=== PATIENT | male | born 1955 | race African-American/Black ===

== ENCOUNTER 2018-04-29 13:10 | Emergency (ER) | payer OTHER ==
[~2018-04-29] VITALS: Ht 167.6 cm; Wt 102.1 kg
[~2018-04-29 13:10] MED LIST: AMLODIPINE BESY10 MG PO; CARAFATE 1 GM TA1 G1 PO; COZAAR 50 MG TA50 M2 PO; HYDROCHLOROTHIA25 M2 PO; HYDROCODONE-APA1 TA1 PO; KLOR-CON 1010 MEQ PO; LOPRESSOR50 MG PO; METFORMIN HCL500 MG PO; PRAVACHOL40 M1 PO; PRILOSEC 20 MG20 MG PO; REGLAN 5 MG TAB5 MG PO; TRAMADOL 50 MG50 MG PO
[2018-04-29 13:51] LABS: ABSOLUTE BASOPHILS 0.1 thou/uL (0.0-0.2); ABSOLUTE EOSINOPHILS 0.4 thou/uL (0.0-0.7); ABSOLUTE LYMPHOCYTES 1.8 thou/uL (0.8-5.3); ABSOLUTE MONOCYTES 0.4 thou/uL (0.0-1.2); BASOPHILS 1.3 %; EOSINOPHILS 6.3 %; HEMOGLOBIN 12.1 gm/dL (14.0-18.0); LYMPHOCYTES 27.1 %; MCH 25.4 pg (26.0-34.0); MCHC 31.9 g/dL (28.0-37.0); MCV 79.6 fL (80.0-100.0); MONOCYTES 6.5 %; MPV 8.9 fl. (7.2-11.1); NUCLEATED RBCS 0 /100WBC; PLATELET COUNT* 263 thou/uL (150-400); POLYS 58.8 %; RBC 4.77 mil/uL (4.50-6.00); RDW-CV 15.1 % (10.5-14.5); WBC 6.8 thou/uL (4.0-11.0)
[2018-04-29 13:57] LABS: ANION GAP 8 mmol/L (7-16); BUN 17 mg/dL (7-18); CALCIUM 9.1 mg/dL (8.5-10.1); CHLORIDE 102 mmol/L (98-107); CO2 27 mmol/L (21-32); CREATININE 1.3 mg/dL (0.6-1.3); GLUCOSE 137 mg/dL (70-99); POTASSIUM 3.4 mmol/L (3.5-5.1); SODIUM 137 mmol/L (136-145)
[2018-04-29 14:04] LABS: ALBUMIN 3.5 g/dL (3.4-5.0); ALKALINE PHOSPHATASE 93 U/L (46-116); SGOT 22 U/L (15-37); SGPT 27 U/L (30-65); TOTAL BILIRUBIN 0.8 mg/dL (<0.1-1.0); TOTAL PROTEIN 7.3 g/dL (6.4-8.2); TROPONIN-I LEVEL <0.06 ng/mL (<0.06)
[2018-04-29 14:52] VITALS: BP 121/73
--- NOTE | 2018-04-30 11:52 | EKG ---
[place] [address] ELECTROCARDIOGRAM REPORT Name: DANNI [facility]INDER 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 : 1955 Requested By: Carrie Arnold Order Number: [id number] MD: Ryland Brewer Measurements Intervals [place] Rate: 41 P: -22 [place]: 256 QRS: -13 QRSD: 108 T: -22 QT: 448 QTc: 370 Interpretive Statements Sinus bradycardia Prolonged [place] interval Abnormal T, consider ischemia, anterior leads Compared to ECG 06/06/2016 04:19:42 No significant changes Electronically Signed On 04-30-2018 11:52:31 CDT by Ryland Brewer [email or web address] <ELECTRONICALLY SIGNED> By: Ryland Brewer MD, [facility] 04/30/18 1152 1403 140 Ryland Brewer MD, [facility] /EPI
== END 2018-04-29 14:53 | disposition home or self-care (01) ==
LOC: M.ERS 13:10
PROVIDERS: Nurse Practitioner Family
DX: S22.20XA Unspecified fracture of sternum, initial encounter for closed fracture (principal); I10 Essential (primary) hypertension; E11.9 Type 2 diabetes mellitus without complications; V89.2XXA Person injured in unspecified motor-vehicle accident, traffic, initial encounter; Y93.I9 Activity, other involving external motion; Y92.89 Other specified places as the place of occurrence of the external cause; Y99.8 Other external cause status

== ENCOUNTER 2019-11-20 17:25 | Inpatient (IN) | payer BC, MEDICARE ==
[~2019-11-20] VITALS: Ht 170.2 cm; Wt 119.5 kg
[~2019-11-20 17:25] MED LIST changes: -PRILOSEC 20 MG20 MG PO; +PRILOSEC OTC20 MG PO
[2019-11-20 17:45] VITALS: BP 109/58
[2019-11-20 17:52] LABS: ABSOLUTE BASOPHILS 0.1 thou/uL (0.0-0.2); ABSOLUTE EOSINOPHILS 0.4 thou/uL (0.0-0.7); ABSOLUTE MONOCYTES 0.7 thou/uL (0.0-1.2); BASOPHILS 1.3 %; EOSINOPHILS 5.3 %; HEMATOCRIT 36.7 % (42.0-52.0); HEMOGLOBIN 12.1 gm/dL (14.0-18.0); LYMPHOCYTES 24.6 %; MONOCYTES 8.4 %; MPV 9.1 fl. (7.2-11.1); NUCLEATED RBCS 0 /100WBC; PLATELET COUNT* 242 thou/uL (150-400); POLYS 60.4 %; RBC 4.65 mil/uL (4.50-6.00); RDW-CV 15.6 % (10.5-14.5); WBC 8.3 thou/uL (4.0-11.0)
[2019-11-20 18:01] LABS: APTT 24.1 Seconds (25.0-31.3); PROTIME 10.7 Seconds (9.20-11.50)
[2019-11-20 18:06] LABS: ANION GAP 9 mmol/L (7-16); BUN 15 mg/dL (7-18); CALCIUM 8.9 mg/dL (8.5-10.1); CHLORIDE 102 mmol/L (98-107); CO2 27 mmol/L (21-32); CREATININE 1.6 mg/dL (0.6-1.3); GLUCOSE 136 mg/dL (70-99); POTASSIUM 4.4 mmol/L (3.5-5.1); SODIUM 138 mmol/L (136-145)
[2019-11-20 18:11] LABS: ALBUMIN 3.7 g/dL (3.4-5.0); ALKALINE PHOSPHATASE 97 U/L (46-116); CHOLESTEROL 126 mg/dL (<200); HDL CHOLESTEROL 44 mg/dL (>40); LDL CHOLESTEROL 61 mg/dL (<100); MAGNESIUM 1.6 mg/dL (1.8-2.4); SGOT 18 U/L (15-37); SGPT 25 U/L (30-65); TC:HDL 2.9 Ratio (Not establshd); TOTAL BILIRUBIN 0.9 mg/dL (<0.1-1.0); TOTAL PROTEIN 7.1 g/dL (6.4-8.2); TRIGLYCERIDE 109 mg/dL (<150); VLDL 22 mg/dL (<40)
[2019-11-20 18:12] LABS: SERUM ASSESSMENT Clear
[2019-11-20 20:25] VITALS: BP 111/74
[2019-11-20 20:30] VITALS: BP 115/70
[2019-11-20 21:07] LABS: URINE BILIRUBIN NEGATIVE (Negative); URINE BLOOD NEGATIVE (Negative); URINE CLARITY CLEAR; URINE COLOR YELLOW; URINE GLUCOSE-RANDOM NEGATIVE (Negative); URINE KETONES NEGATIVE (Negative); URINE LEUKOCYTES-REFLEX NEGATIVE (Negative); URINE NITRITE-REFLEX NEGATIVE (Negative); URINE PROTEIN NEGATIVE (Negative); URINE UROBILINOGEN 0.2 E.U./dl (0.2-1.0)
[2019-11-21 00:33] VITALS: BP 119/77
[2019-11-21 03:15] VITALS: BP 125/77
--- NOTE | 2019-11-21 05:10 | NUR ---
RECEIVED PT FROM ED AT APPROX 2030 PER CART ACCOMPANIED BY ALEXANDRA ZARAGOZA. PT IS AWAKE AND ORIENTED X4. MARINE OPERATIONS COORDINATOR IN PLACE TRACING SR w/ 1ST DEGREE AVB. RHYTHM CHANGE NOTED AT APPROX 0315- SB w/ 2nd DEGREE AVB TYPE II- SEE TRACING IN CHART. OTHER VITAL SIGNS REMAINED STABLE. PT DENIES LIGHTHEADEDNESS NOR CHEST PAIN, DR SPANN INFORMED, NO NEW ORDERS RECEIVED. WILL CONTINUE TO MONITOR CLOSELY.
[2019-11-21 05:39] LABS: CALCIUM 7.8 mg/dL (8.5-10.1); CREATININE 1.2 mg/dL (0.6-1.3); MAGNESIUM 1.5 mg/dL (1.8-2.4); POTASSIUM 3.4 mmol/L (3.5-5.1)
[2019-11-21 07:58] VITALS: BP 106/68
[2019-11-21 10:49] VITALS: BP 106/68
--- NOTE | 2019-11-21 12:10 | NUR ---
MET WITH PT TO DISCUSS HOME SITUATION/DC PLANNING. 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 HE USES NO EQUIPMENT. VOICED FRUSTRATION WITH STAYING IN HOSPITAL. DISCUSSED POC AND ENCOURAGED COMPLIANCE. PT STATES HE HAD TO CHANGE DRS 3 TIMES RECENTLY D/T [facility] OF 1 AND INSURANCE ISSUES ON THE OTHER. HE HOPES TO GO HOME SOON. DENIES NEEDS. WILL FOLLOW
[2019-11-21 12:28] VITALS: BP 130/78
--- NOTE | 2019-11-21 14:37 | 2DMMODE ---
[place] [address] 2 D/M-MODE ECHOCARDIOGRAM Name: DANNI LINDER Room: [place] [address] ADM IN [facility]#: [id number] Admission: 11/21/19 Attend Phys: Danni Prajapati, Discharge: Date of : 51 Date of Service: 11/21/19 1436 Report #: [id number] THIS REPORT FOR: //name// APPROVED REPORT Study performed: 11/21/2019 09:54:11 EXAM: Comprehensive 2D, Doppler, and color-flow Echocardiogram Patient Location: In-Patient Room #: [facility] Status: routine BSA: 2.23 HR: 54 bpm BP: 106/68 mmHg Rhythm: NSR Other Information Study Quality: Good Indications Arrhythmia 2D Dimensions IVSd: 12.50 (7-11mm) LVOT Diam: 22.62 (18-24mm) LVDd: 45.86 mm PWd: 9.77 (7-11mm) Ascending Ao: 36.56 (22-36mm) LVDs: 32.75 (25-40mm) Aortic Root: 28.33 mm Volumes Left Atrial Volume (Systole) LA ESV Index: 34.20 mL/m2 Aortic Valve AoV Peak Luigi.: 1.26 m/s AO Peak Gr.: 6.34 mmHg LVOT Max P.86 mmHg AO Mean Gr.: 3.41 mmHg LVOT Mean P.61 mmHg LVOT Max V: 1.21 m/s AO V2 VTI: 27.28 cm LVOT Mean V: 0.73 m/s NANCY (VTI): 4.18 cm2 LVOT V1 VTI: 28.40 cm Mitral Valve E/A Ratio: 1.03 MV Decel. Time: 240.35 ms MV E Max Luigi.: 0.72 m/[place] [address] 2 D/M-MODE ECHOCARDIOGRAM Name: DANNI LINDER Room: [address] IN [facility]#: [id number] Admission: 11/21/19 Attend Phys: Danni Prajapati, Discharge: Date of : 51 Date of Service: 11/21/19 1436 Report #: [id number] MV PHT: 69.70 ms MVA (PHT): 3.16 cm2 TDI E/Lateral E': 6.00 E/Medial E': 8.00 Medial E' Luigi.: 0.09 m/s Lateral E' Luigi.: 0.12 m/s Pulmonary Valve PV Peak Luigi.: 1.06 m/s PV Peak Gr.: 4.49 mmHg Left Ventricle The left ventricle is normal size. There is normal LV segmental wall motion. Borderline concentric left ventricular hypertrophy. Left ventricular systolic function is normal. The left ventricular ejection fraction is within the normal range. LVEF is 60%. Grade I - abnormal relaxation pattern. Right Ventricle The right ventricle is normal size. The right ventricular systolic function is normal. Atria The left atrium size is normal. The right atrium size is normal. Aortic Valve Mild aortic valve sclerosis. No aortic regurgitation is present. There is no aortic valvular stenosis. Mitral Valve The mitral valve is normal in structure. Trace mitral regurgitation. No evidence of mitral valve stenosis. Tricuspid Valve The tricuspid valve is normal in structure. Unable to assess PA pressure. Trace tricuspid regurgitation. Pulmonic Valve The pulmonary valve is normal in structure. There is no pulmonic valvular regurgitation. Great Vessels The aortic root is normal in size. IVC [place] [address] 2 D/M-MODE ECHOCARDIOGRAM Name: DANNI LINDER Room: [address] IN [facility]#: [id number] Admission: 11/21/19 Attend Phys: Danni Prajapati, Discharge: Date of : 51 Date of Service: 11/21/19 1436 Report #: [id number] Pericardium There is no pericardial effusion. <Conclusion> The left ventricle is normal size. Borderline concentric left ventricular hypertrophy. Left ventricular systolic function is normal. The left ventricular ejection fraction is within the normal range. LVEF is 60%. Grade I - abnormal relaxation pattern. The right ventricle is normal size. The left atrium size is normal. Mild aortic valve sclerosis. No aortic regurgitation is present. There is no aortic valvular stenosis. The mitral valve is normal in structure. Trace mitral regurgitation. The tricuspid valve is normal in structure. There is no pericardial effusion. There is normal LV segmental wall motion. <ELECTRONICALLY SIGNED> By: Jace Roberts MD, [facility] 11/21/19 1436 1436 1436 Jace Roberts MD, FACC /INF
--- NOTE | 2019-11-21 15:01 | EKG ---
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: MS : 1955 Requested By: Kell Carpenter Order Number: [id number] MD: Jace Roberts Measurements Intervals [place] Rate: 54 P: 35 [place]: 232 QRS: -10 QRSD: 115 T: 17 QT: 437 QTc: 415 Interpretive Statements Sinus rhythm Prolonged [place] interval Nonspecific intraventricular conduction delay Compared to ECG 04/29/2018 14:03:30 Intraventricular conduction delay now present Sinus bradycardia no longer present T-wave abnormality no longer present Possible ischemia no longer present Electronically Signed On 11-21-2019 15:00:29 BUILDING INSULATION SUPERVISOR by Jace Roberts [email or web address] <ELECTRONICALLY SIGNED> By: Jace Roberts MD, FACC 11/21/19 1500 [id number] 174 Jace Roberts MD, [facility] /EPI
--- NOTE | 2019-11-21 18:56 | NUR ---
VSS, ASSUMED CARE OF PT IN THE AM, ASSESSMENT PERFORMED AND CHARTED, FALL PRECAUTIONS IN PLACE AND CALL LIGHT IN REACH, PT IS A&O4 AND IS UP AD NATHALIA, ON RA AND DENIES ANY PAIN, PT IS TRACING SB ON THE MONITOR, HE HAD AN 8 SEC HEART STOP TODAY AND PT MAY NEED PACE-MAKER PLACEMENT, WILL FOLLOW WITH PLAN OF CARE/
[2019-11-21 19:40] VITALS: BP 138/90
[2019-11-22 00:25] VITALS: BP 118/79
[2019-11-22 04:00] VITALS: BP 127/77
--- NOTE | 2019-11-22 05:58 | NUR ---
RECEIVED REPORT AND ASSUMED CARE AT 1900. VSS. CARDIAC MONITORING IN PLACE. PT DENIES COMPLAINTS OF PAIN. ASSESSMENT COMPLETED CHARTED. PT UP AD NATHALIA, ON RA. BED LOCKED IN LOWEST POSITION, CALL LIGHT WITHIN REACH. DISCUSSED PLAN OF CARE, VERBALIZED UNDERSRTANDING. NPO AFTER MIDNIGHT.HOURLY ROUNDING COMPLETED AND ALL NEEDS MET
[2019-11-22 09:05] VITALS: BP 135/90
[2019-11-22 10:04] VITALS: BP 127/77
--- NOTE | 2019-11-22 11:42 | NUR ---
PT TO DC HOME TODAY AND WISHES TO SEEK A SECOND OPINION WITH CARDIOLOGY ELSEWHERE. PT GOING HOME ON MONITOR. MET WITH PT AND GAVE CM NUMBER TO CONTACT IN ORDER TO ASSIST WITH CONTINUITY OF CARE AND RECORDS.
[2019-11-23] MEDS ORDERED: FLOMAX0.4 MG PO (10:26)
[2019-11-23] MEDS ORDERED: KEFLEX500 M1 PO (18:04)
== END 2019-11-22 13:25 | disposition home or self-care (01) | DRG 309 ==
LOC: M.ERS 17:25 → M.TBA-ER 18:57 → M.2W 18:57 → M.TBA-ER 18:57 → M.2W 20:40
PROVIDERS: Personal Emergency Response Attendant; ADMIT Internal Medicine
DX: I44.1 Atrioventricular block, second degree (principal); Z68.41 Body mass index [BMI] 40.0-44.9, adult; I95.9 Hypotension, unspecified; E66.9 Obesity, unspecified; E11.22 Type 2 diabetes mellitus with diabetic chronic kidney disease; N18.3 Chronic kidney disease, stage 3 (moderate); I95.2 Hypotension due to drugs; I12.9 Hypertensive chronic kidney disease with stage 1 through stage 4 chronic kidney disease, or unspecified chronic kidney disease; T50.905A Adverse effect of unspecified drugs, medicaments and biological substances, initial encounter; E83.42 Hypomagnesemia; E78.5 Hyperlipidemia, unspecified; I49.5 Sick sinus syndrome; Y92.89 Other specified places as the place of occurrence of the external cause; Z79.899 Other long term (current) drug therapy

== ENCOUNTER 2019-11-23 10:15 | Emergency (ER) | payer BC, MEDICARE ==
[~2019-11-23] VITALS: Ht 170.2 cm; Wt 113.4 kg
[2019-11-23 10:20] VITALS: BP 138/86
[2019-11-23] MEDS ORDERED: FLOMAX0.4 MG PO (10:26)
--- NOTE | 2019-11-23 13:07 | EKG ---
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: : 1955 Requested By: Nitish Arndt Order Number: [id number] Reading MD: Jace Roberts Measurements Intervals [place] Rate: 63 P: 9 [place]: 205 QRS: -13 QRSD: 98 T: 8 QT: 402 QTc: 412 Interpretive Statements Sinus rhythm Abnormal T, consider ischemia, anterior leads Compared to ECG 11/20/2019 17:41:54 T-wave abnormality now present Possible ischemia now present First degree AV block no longer present Intraventricular conduction delay no longer present Electronically Signed On 11-23-2019 13:06:14 GROUP INSURANCE SPECIAL AGENT by Jace Roberts [email or web address] <ELECTRONICALLY SIGNED> By: Jace Roberts MD, [facility] 11/23/19 1306 102 20 Jace Roberts MD, FAC /EPI
[2019-11-23 15:42] VITALS: BP 147/60
[2019-11-23] MEDS ORDERED: KEFLEX500 M1 PO (18:04)
[2019-11-23 18:12] VITALS: BP 147/60
--- NOTE | 2019-11-24 11:46 | CARD ---
[address] [address] CARDIAC CATH REPORT Name: DANNI LINDER Room: [facility] Inge#: [id number] Admission: 11/23/19 Attend Phys: Discharge: 11/23/19 Date of : 51 Report #: [id number] THIS REPORT FOR: //name// APPROVED REPORT Study performed: 11/23/2019 15:31:50 Patient Status: ED Room #: Event Personnel: Holden Fine Body Die Maker, Pancho Grimaldo, Selene Meyer Academy Director, Madhavi Friedman RTDidier Monitor Exam: Insertion of Dual Chamber Permanent Pacemaker The patient is a 64 year-old male with a history of . Conscious Sedation Start time: 16:12 End Time: 16:49 Fentanyl 100 mcg Versed 4 mg Implanted Devices: Biotronik Eluna 8 DRT, model #846579, serial #[id number] dual-chamber pulse generator. Biotronik Solia S 60, model #217501, serial #[id number] ventricular lead. Biotronik Solia S 53, model #546146, serial number [id number] atrial lead. Procedure The patient underwent informed consent. We discussed the details of the procedure including the risks, which include, but not limited to bleeding, infection, vascular damage, cardiac perforation, and pneumothorax. He understood these risks and was willing to proceed. As such, he was brought to the EP/Cardiac Catheterization laboratory in a fasting and sedated state and prepped and draped in a sterile fashion, received IV antibiotics prior to initiation of the procedure and a venogram was performed showing patency of the left axillary vein. The patient underwent conscious sedation, with no related complications. The patient was brought to the EP/Cardiac Catheterization laboratory and the left chest and shoulder were prepped and draped in a sterile manner. During this case, Fluoroscopy and a venogram were used for imaging. The left subclavian region was infiltrated with 2% Lidocaine with Epinephrine subcutaneous anesthesia. A transverse incision was made in [place] [address] CARDIAC CATH REPORT Name: KAILASHDANNI Room: [facility]#: [id number] Admission: 11/23/19 Attend Phys: Discharge: 11/23/19 Date of : 51 Report #: [id number] The subcutaneous pocket was formed via blunt dissection. Percutaneous venous access was achieved and an introducer sheath was inserted into the left Subclavian vein. Utilizing fluoroscopic guidance, the atrial and ventricular lead wires were advanced over the wires and positioned in the right atria and right ventricle respectively. Capturing and sensing thresholds were verified. Electrode Parameters P Wave: 3.0 mV R Wave: 7.9 mV Atrial Threshold: 0.5 V at 0.40 ms Ventricular Threshold: 0.5 V at 0.40 ms Atrial Resistance: 437 ohms Ventricular Resistance: 745 ohms Dual Chamber The atrial and ventricular leads were then secured using 0 silk sutures. The subcutaneous pocket was irrigated with ancef antibiotic solution.The atrial and ventricular leads were attached to the appropriate receptacles on the pulse generator and set screws firmly tightened to insure adequate contact and stability. The lead and pulse generator were placed into the subcutaneous pocket. Sharp and sponge counts were confirmed to be correct. At this time the pocket was closed subcutaneously with a 2.0 Vicryl and the skin was closed with a 4.0 Vicryl. The operative site was dressed in sterile fashion with benzoin spray, steri strips, tegaderm and the patient was transferred to the floor in stable condition. Complications The patient tolerated the procedure well and there were no complications associated with the procedure. Conclusion 1.8 fluoro minutes. 10 mGy. 258.43 DAP. 10 ml omnipaque. 2 gms Ancef IV. 1 gm Ancef to pocket. 1. History of significant sinus node dysfunction with sinus node arrest and syncope. 2. Successful placement of a dual-chamber pacemaker with atrial [place] [address] CARDIAC CATH REPORT Name: DANNI LINDER Room: [facility] Alcazar#: [id number] Admission: 11/23/19 Attend Phys: Discharge: 11/23/19 Date of : 51 Report #: [id number] Recommendations 1. Follow-up site check in one week. <ELECTRONICALLY SIGNED> By: Holden Fine MD, FACC 11/24/19 1145 1145 1145Michaesophie Fine MD, FACC /INF
== END 2019-11-23 15:42 | disposition still patient (30) ==
LOC: M.ERS 10:15 → M.CL 10:15 → M.TBA-ER 10:45 → M.ERS 10:45 → M.CL 15:42
DX: I49.5 Sick sinus syndrome (principal); R55 Syncope and collapse; I12.9 Hypertensive chronic kidney disease with stage 1 through stage 4 chronic kidney disease, or unspecified chronic kidney disease; E11.22 Type 2 diabetes mellitus with diabetic chronic kidney disease; N18.3 Chronic kidney disease, stage 3 (moderate); E78.5 Hyperlipidemia, unspecified; E66.09 Other obesity due to excess calories; Z98.890 Other specified postprocedural states; Z79.899 Other long term (current) drug therapy

== ENCOUNTER → 2021-05-21 | Outpatient (CLI) | payer OTHER, MEDICARE ==
[~2021-05-21] MED LIST changes: +FLOMAX0.4 MG PO; +KEFLEX500 M1 PO
[2021-05-21 14:46] LABS: ALBUMIN 3.6 g/dL (3.4-5.0); CALCIUM 8.6 mg/dL (8.5-10.1); CREATININE 2.1 mg/dL (0.6-1.3); POTASSIUM 4.1 mmol/L (3.5-5.1); TOTAL PROTEIN 7.4 g/dL (6.4-8.2)
== END ==
LOC: M.LAB 14:09
PROVIDERS: ATTEND Registered Nurse
DX: I10 Essential (primary) hypertension (principal)

== ENCOUNTER → 2021-08-07 | Outpatient (CLI) | payer OTHER, MEDICARE | LOC: M.ULTRA 13:42 | PROVIDERS: ATTEND Family Medicine | DX: N28.1 Cyst of kidney, acquired (principal); I12.9 Hypertensive chronic kidney disease with stage 1 through stage 4 chronic kidney disease, or unspecified chronic kidney disease; N18.30 Chronic kidney disease, stage 3 unspecified; N17.9 Acute kidney failure, unspecified; R60.9 Edema, unspecified ==

== ENCOUNTER 2021-12-20 07:59 | Emergency (ER) | payer OTHER, MEDICARE ==
[~2021-12-20] VITALS: Ht 172.7 cm; Wt 104.3 kg
[2021-12-20] MEDS ORDERED: BUSPIRONE HCL5 MG PO (08:09)
[2021-12-20 08:18] LABS: ABSOLUTE BASOPHILS 0.1 thou/uL (0.0-0.2); ABSOLUTE EOSINOPHILS 0.2 thou/uL (0.0-0.7); ABSOLUTE LYMPHOCYTES 1.5 thou/uL (0.8-5.3); ABSOLUTE MONOCYTES 0.6 thou/uL (0.0-1.2); ABSOLUTE NEUTROPHILS 4.5 thou/uL (1.6-8.1); BASOPHILS 1.4 %; EOSINOPHILS 3.1 %; HEMOGLOBIN 10.4 gm/dL (14.0-18.0); LYMPHOCYTES 21.5 %; MCHC 32.5 g/dL (28.0-37.0); MCV 76.8 fL (80.0-100.0); MONOCYTES 8.4 %; NUCLEATED RBCS 0 /100WBC; PLATELET COUNT* 272 thou/uL (150-400); POLYS 65.6 %; RBC 4.17 mil/uL (4.50-6.00); RDW-CV 14.6 % (10.5-14.5); WBC 6.9 thou/uL (4.0-11.0)
[2021-12-20 08:30] LABS: CALCIUM 8.3 mg/dL (8.5-10.1); CREATININE 2.3 mg/dL (0.6-1.3); POTASSIUM 3.7 mmol/L (3.5-5.1)
[2021-12-20 08:44] LABS: ALBUMIN 3.1 g/dL (3.4-5.0); TOTAL BILIRUBIN 0.8 mg/dL (<0.1-1.0); TOTAL PROTEIN 6.9 g/dL (6.4-8.2)
[2021-12-20 09:32] VITALS: BP 127/79
--- NOTE | 2021-12-20 11:59 | EKG ---
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: : 1955 Requested By: Elian Gary Order Number: [id number] MD: Jace Roberts Measurements Intervals [place] Rate: 75 P: [place]: 221 QRS: 56 QRSD: 94 T: 42 QT: 382 QTc: 427 Interpretive Statements Atrial-paced complexes Prolonged [place] interval Abnormal R-wave progression, early transition Borderline T abnormalities, anterior leads Baseline wander in lead(s) V6 Compared to ECG 11/23/2019 10:21:13 First degree AV block now present Sinus rhythm no longer present as rhythm is exclusively atrially paced Possible ischemia no longer present Electronically Signed On 12-20-2021 11:58:58 ASSISTANT MERCHANDISER by Jace Roberts [email or web address] <ELECTRONICALLY SIGNED> By: Jace Roberts MD, [facility] 12/20/21 1158 0808 Jace Roberts MD, [facility] /EPI
== END 2021-12-20 09:33 | disposition home or self-care (01) ==
LOC: M.ERS 07:59
PROVIDERS: Family Medicine
DX: F41.0 Panic disorder [episodic paroxysmal anxiety] (principal); Z20.822 Contact with and (suspected) exposure to COVID-19; R41.0 Disorientation, unspecified; R53.83 Other fatigue; E11.22 Type 2 diabetes mellitus with diabetic chronic kidney disease; I12.9 Hypertensive chronic kidney disease with stage 1 through stage 4 chronic kidney disease, or unspecified chronic kidney disease; N18.30 Chronic kidney disease, stage 3 unspecified; E66.9 Obesity, unspecified; Z68.35 Body mass index [BMI] 35.0-35.9, adult; Z79.899 Other long term (current) drug therapy